=== PATIENT | female | born 1950 | race Hispanic/Latino ===

== ENCOUNTER 2018-12-13 00:15 | Emergency (ER) | payer MEDICARE ==
[~2018-12-13] VITALS: Ht 157.5 cm; Wt 73.9 kg
[~2018-12-13 00:15] MED LIST: Z.0.VAGIFEM10 MCG VG
--- OUTSIDE RECORDS SUMMARY | 2018-12-13 00:18 | XMS REPORT ---
Author Author Jennifer Worrell Organization [employer] Address Unknown Phone Unavailable Care Team Providers Care Field Service Supervisor Name Role Phone Jennifer Worrell CP Unavailable Allergies, Adverse Reactions, Alerts Substance Reaction Event Type N.K.D.A. Info Not Available Non Drug Allergy Problems Problem Type Condition Code Onset Dates Condition Status Problem Osteoarthritis involving multiple joints on both sides of body M15.9 Active Assessment Lumbago with sciatica, right side M54.41 Active Problem Lumbago with sciatica, right side M54.41 Active Assessment Hand pain, left M79.642 Active Assessment Hand pain, right M79.641 Active Assessment Osteoarthritis involving multiple joints on both sides of body M15.9 Active Assessment Counseling NOS Z71.9 Active Medications Medication Code System Code Instructions Start Date End Date Status Dosage Lyrica [facility] [address]-75 75 MG Orally Twice a day March 19, 2017 Active 1 capsule Vital Signs Date/Time: May 06, 2017 Height 62 in Blood Pressure Diastolic 75 mm Hg Blood Pressure Systolic 152 mm Hg Weight 169 lbs Results No Known Results Summary Purpose [employer] Submission
--- OUTSIDE RECORDS SUMMARY | 2018-12-13 00:18 | XMS REPORT ---
Author Author Jennifer Worrell Organization [employer] Address Unknown Phone Unavailable Care Team Providers Care Railcar Brake Operator Name Role Phone Jennifer Worrell CP Unavailable Allergies No Known Allergies Problems Problem Type Condition Code Onset Dates Condition Status Problem Osteoarthritis involving multiple joints on both sides of body M15.9 Active Problem Lumbago with sciatica, right side M54.41 Active Medications No Known Medications Results No Known Results Summary Purpose [employer] Submission
--- OUTSIDE RECORDS SUMMARY | 2018-12-13 00:18 | XMS REPORT | Continuity of Care Document ---
Author Author [facility] Interface Address Unknown Phone Unavailable Problems Problem Status Onset Date Classification Date Reported Comments Source Osteoarthritis involving multiple joints on both sides of body Active Problem 05/07/2017 Jennifer Najam Lumbago with sciatica, right side Active Diagnosis 05/07/2017 Jennifer Najam Hand pain, left Active Diagnosis 05/07/2017 Jennifer Najam Hand pain, right Active Diagnosis 05/07/2017 Jennifer Najam Counseling NOS Active Diagnosis 05/07/2017 Jennifer Najam Medications Medication Details Route Status Patient Instructions Ordering Provider Order Date Source Lyrica 1 capsule Orally Active 75 MG Orally Twice a day Najam 03/19/2017 Jennifer Najam Gabapentin 3 tabs Orally Active 100 MG Orally bedtime Najam 01/10/2017 Jennifer Najam Nabumetone 1 tab(s) Orally Active 750 MG Orally bid prn with food Najam 01/10/2017 Jennifer Najam Cyclobenzaprine HCl 1 tablet as needed Orally Active 10 MG Orally bedtime Najam 01/10/2017 Jennifer Najam Gabapentin 3 tabs Orally Active 100 MG Orally bedtime Najam Jennifer Najam Cyclobenzaprine HCl 1 tablet as needed Orally Active 10 MG Orally bedtime Najam Jennifer Najam Nabumetone 1 tab(s) Orally Active 750 MG Orally bid prn with food Najam Jennifer Najam MethylPREDNISolone 1 tablet with food or milk in the morning Orally Active 4 MG Orally Najam Jennifer Najam Baclofen 1 tablet with food or milk Orally Active 10 MG Orally Three times a day Najam Jennifer Najam Meloxicam 1 tablet Orally Active 15 MG Orally Once a day Najam Jennifer Najam Allergies, Adverse Reactions, Alerts Substance Category Reaction Severity Reaction type Status Date Reported Comments Source N.K.D.A. Adverse Reaction Info Not Available Adverse Reaction Active 05/06/2017 Jennifer Najam Immunizations Immunization Date Given Site Status Last Updated Comments Source Results Order Name Results Value Reference Range Date Interpretation Comments Source Vital Signs Vital Sign Value Date Comments Source Height 62 05/06/2017 Jennifer Najam Diastolic (mm Hg) 75 05/06/2017 Jennifer Najam Systolic (mm Hg) 152 05/06/2017 Jennifer Najam Weight 169 05/06/2017 Jennifer Najam Height 62 03/19/2017 Jennifer Najam Diastolic (mm Hg) 69 03/19/2017 Jennifer Najam Systolic (mm Hg) 123 03/19/2017 Jennifer Najam Weight 164 03/19/2017 Jennifer Najam Height 62 02/04/2017 Jennifer Najam Diastolic (mm Hg) 71 02/04/2017 Jennifer Najam Systolic (mm Hg) 115 02/04/2017 Jennifer Najam Weight 165 02/04/2017 Jennifer Najam Height 62 01/10/2017 Jennifer Najam Diastolic (mm Hg) 70 01/10/2017 Jennifer Najam Systolic (mm Hg) 149 01/10/2017 Jennifer Najam Weight 169.8 01/10/2017 Jennifer Najam Encounters Location Location Details Encounter Type Encounter Number Reason For Visit Attending Provider ADM Date DC Date Status Source Procedures Procedure Code Date Perfomer Comments Source
--- OUTSIDE RECORDS SUMMARY | 2018-12-13 00:18 | XMS REPORT ---
Author Author Jennifer Worrell Organization [employer] Address Unknown Phone Unavailable Care Team Providers Care Home Mission Worker Name Role Phone Maryankala Jennifer CP Unavailable Allergies, Adverse Reactions, Alerts Substance [...] Instructions Start Date End Date Status Dosage Gabapentin [facility] [address]-34 100 MG Orally bedtime Active 3 tabs Cyclobenzaprine HCl [facility] [address]-08 10 MG Orally bedtime Active 1 tablet as needed Nabumetone [facility] [address]-87 750 MG Orally bid prn with food Active 1 tab(s) Vital Signs Date/Time: February 04, 2017 Height 62 in Blood Pressure Diastolic 71 mm Hg Blood Pressure Systolic 115 mm Hg Weight 165 lbs Results No Known Results Summary Purpose [employer] Submission
--- OUTSIDE RECORDS SUMMARY | 2018-12-13 00:18 | XMS REPORT ---
Author Author Jennifer Worrell Organization [employer] Address Unknown Phone Unavailable Care Team Providers Care Tube Draw Helper Name Role Phone Saúl Worrelleen CP Unavailable Allergies, Adverse Reactions, Alerts Substance [...] Instructions Start Date End Date Status Dosage MethylPREDNISolone [facility] [address]-23 4 MG Orally Inactive 1 tablet with food or milk in the morning Baclofen [facility] [address]-86 10 MG Orally Three times a day Inactive 1 tablet with food or milk Gabapentin [facility] [address]-46 100 MG Orally bedtime January 10, 2017 Active 3 tabs Nabumetone [facility] [address]-10 750 MG Orally bid prn with food January 10, 2017 March 11, 2017 Active 1 tab(s) Meloxicam [facility] [address]-33 15 MG Orally Once a day Inactive 1 tablet Cyclobenzaprine HCl [facility] [address]-97 10 MG Orally bedtime January 10, 2017 March 11, 2017 Active 1 tablet as needed Vital Signs Date/Time: January 10, 2017 Height 62 in Blood Pressure Diastolic 70 mm Hg Blood Pressure Systolic 149 mm Hg Weight 169.8 lbs Results No Known Results Summary Purpose [employer] Submission
--- OUTSIDE RECORDS SUMMARY | 2018-12-13 00:18 | XMS REPORT ---
Author Author Jennifer Worrell Organization [employer] Address Unknown Phone Unavailable Care Team Providers Care Nut Orchardist Name Role Phone Jennifer Worrell CP Unavailable Allergies No Known Allergies Problems Problem Type Condition Code Onset Dates Condition Status Problem Osteoarthritis involving multiple joints on both sides of body M15.9 Active Problem Lumbago with sciatica, right side M54.41 Active Medications No Known Medications Results No Known Results Summary Purpose [employer] Submission
--- OUTSIDE RECORDS SUMMARY | 2018-12-13 00:18 | XMS REPORT ---
Author Author Jennifer Worrell Organization [employer] Address Unknown Phone Unavailable Care Team Providers Care Crisis Therapist Name Role Phone Maryankala Jennifer CP Unavailable [...] Instructions Start Date End Date Status Dosage Nabumetone [facility] [address]-02 750 MG Orally bid prn with food Active 1 tab(s) Gabapentin [facility] [address]-58 100 MG Orally bedtime Active 3 tabs Cyclobenzaprine HCl [facility] [address]-65 10 MG Orally bedtime Active 1 tablet as needed Lyrica [facility] [address]-03 75 MG Orally Twice a day March 19, 2017 Active 1 capsule Vital Signs Date/Time: March 19, 2017 Height 62 in Blood Pressure Diastolic 69 mm Hg Blood Pressure Systolic 123 mm Hg Weight 164 lbs Results No Known Results Summary Purpose [employer] Submission
[2018-12-13] MEDS ORDERED: DEXAMETHASONE SOD PHOS 10 MG/1 ML VIAL IM ONE (01:30)
[2018-12-13] MEDS ORDERED: ALBUTEROL SULF 0.083% NEB SOLN 3 ML NEB NEB STA (01:31)
--- NOTE | 2018-12-13 01:49 | Diagnostic Imaging Report ---
EXAMINATION: PA and lateral views of the chest. COMPARISON: None CLINICAL HISTORY: Shortness of breath, vomiting DISCUSSION: Lines/tubes: None. Lungs: The lungs are well inflated and clear. There is no evidence of pneumonia or pulmonary edema. Pleura: There is no pleural effusion or pneumothorax. Heart and mediastinum: Cardiomediastinal silhouette is unremarkable. Pulmonary vasculature is normal. Bones and soft tissues: No acute bony abnormalities. Degenerative changes in the thoracic spine. Bilateral breast implants are identified. IMPRESSION: No acute cardiopulmonary abnormalities. Signed by: Dr. Fbaian Patrick M.D. on 12/13/2018 1:45 AM
[2018-12-13 04:54] VITALS: BP 112/62
== END 2018-12-13 05:04 | disposition home or self-care (01) ==
LOC: ER 00:15
DX: J02.9 Acute pharyngitis, unspecified (principal)
CPT/HCPCS: 71046; 93005; 96372; 99283; J1100

== ENCOUNTER 2023-07-15 08:51 | Outpatient (RCR) | payer MEDICARE ==
[~2023-07-15 08:51] MED LIST changes: +ALBUTEROL0.63 MG/3 NEB; +ASPIRIN EC81 MG PO; +ASPIRIN81 MG PO; +CALCIUM ACETAT667 M1 PO; +NAMENDA10 MG PO; +PROVENTIL HFA6.7 GM INH
== END 2023-07-23 ==
LOC: PT 08:51
PROVIDERS: ATTEND Physician Assistant
DX: Z47.1 Aftercare following joint replacement surgery (principal); Z96.651 Presence of right artificial knee joint; M25.561 Pain in right knee; M25.661 Stiffness of right knee, not elsewhere classified; M62.81 Muscle weakness (generalized); R26.2 Difficulty in walking, not elsewhere classified

== ENCOUNTER 2023-08-13 07:51 | Outpatient (RCR) | payer MEDICARE | END 2023-08-22 | LOC: PT 07:51 | PROVIDERS: ATTEND Physician Assistant | DX: Z47.1 Aftercare following joint replacement surgery (principal); Z96.651 Presence of right artificial knee joint; M25.561 Pain in right knee; M25.661 Stiffness of right knee, not elsewhere classified; M62.81 Muscle weakness (generalized); R26.2 Difficulty in walking, not elsewhere classified ==